=== PATIENT | male | born 1985 | race Caucasian/White ===

== ENCOUNTER 2020-11-27 12:51 | Outpatient (CLI) | payer BC | END 2020-11-27 12:52 | disposition home or self-care (01) | LOC: TBSIIMAG 12:51 | PROVIDERS: ATTEND Neurological Surgery | DX: M51.16 Intervertebral disc disorders with radiculopathy, lumbar region (principal); M47.26 Other spondylosis with radiculopathy, lumbar region | CPT/HCPCS: 72148 ==